=== PATIENT | male | born 1985 | race Caucasian/White ===

== ENCOUNTER → 2018-02-26 16:52 | Outpatient (CLI) | payer BC, SELFPAY ==
[2018-02-26 17:21] LABS: Basophils # 0.1 K/mm3 (0-0.2); Basophils % 0.9 % (0.1-2.0); Eosinophils # 0.1 K/mm3 (0.0-0.4); Eosinophils % 0.8 % (0.1-12.0); Hematocrit 45.9 % (42.0-52.0); Hemoglobin 15.1 g/dL (14.1-18.0); Lymphocytes # 3.6 K/mm3 (0.7-4.5); Lymphocytes % 42.5 K/mm3 (10-50); Mean Corpuscular HGB Conc 32.9 g/dL (31.8-35.4); Mean Corpuscular Volume 94.1 fl (80-94); Mean Platelet Volume 6.7 fl (7.4-10.4); Monocytes # 0.5 K/mm3 (0.1-1.0); Monocytes % 6.2 % (1.7-9.3); Neutrophils # 4.3 K/mm3 (1.8-7.8); Neutrophils % 49.6 % (37.0-80.0); Platelet Count 317 K/mm3 (142-424); Red Blood Count 4.87 M/mm3 (4.60-6.20); Red Cell Distribution Width 13.4 % (11.5-17.5); White Blood Count 8.6 K/mm3 (4.8-10.8)
[2018-02-26 17:29] LABS: Alanine Aminotransferase 33 U/L (12-78); Albumin Level 3.6 gm/dL (3.4-5.0); Albumin/Globulin Ratio 0.9 (1.1-1.8); Alkaline Phosphatase 81 U/L (46-116); Anion Gap 10.7 mEq/L (5-15); Aspartate Amino Transferase 17 U/L (15-37); Bilirubin,Total 0.2 mg/dL (0.2-1.0); Blood Urea Nitrogen 13 mg/dL (7-18); Carbon Dioxide 29 mmol/L (21.0-32.0); Chloride 103 mmol/L (98-107); Estimated Glomerular Filt Rate 111 ml/min (>60); GFR (African American) 135 ML/MIN (>60); Globulin 4.1 gm/dl (1.3-3.2); Glucose 95 mg/dL (74-106); Phosphorous 3.8 mg/dL (2.4-4.9); Potassium 3.7 mmoL/L (3.5-5.1); Sodium 139 mmol/L (136-145); Thyroid Stimulating Hormone 2.05 uIU/ml (0.358-3.740); Total Protein,Serum 7.7 gm/dL (6.4-8.2)
[2018-02-28 16:33] LABS: Vitamin B12 421 pg/mL (232-1245); Vitamin D 25 Hydroxy 26.5 ng/mL (30.0-100.0)
[2018-03-02 06:38] LABS: Testosterone, Total, LC/MS 124.1 ng/dL (264.0-916.0)
== END ==
PROVIDERS: Visit Provider Family Medicine
DX: R53.83 Other fatigue (principal)
CPT/HCPCS: 36415; 80053; 82607; 82652; 83735; 84100; 84403; 84443; 85025

== ENCOUNTER → 2018-07-12 09:57 | Outpatient (CLI) | payer BC, SELFPAY ==
--- NOTE | 2018-07-12 09:59 | MR_ITS ---
MR lumbar spine wo con, MR 3-d myelogram/MRCP HISTORY: Bilateral low back pain worse on the right LBP that radiates bilaterally but rt leg is worse. X1wk. No trauma ITS.REASON: LUMBAGO WITH SCIATICA ORDERING PHYSICIAN: Juanpablo Selby MD PATIENT AGE: 33 years Comparison: X-RAY 07/05/18 TECHNIQUE: Standard multiplanar multiecho sequences are performed without contrast. 3-D MIP and myelographic images are also rendered and reviewed FINDINGS: Normal alignment. The spinal cord ends at T12-L1. Minimal dextrocurvature of the lumbar spine. L1-L2 and L2-L3 have an unremarkable appearance. L3-L4: Minimal bulging disc along with facet and ligamentum hypertrophy with mild left lateral recess narrowing. L4-5: Bulging disc with small central disc protrusion slightly eccentric toward the left along with facet and ligamentum flavum hypertrophy. There is narrowing of the canal that level at 10 mm. Facet and ligamentum flavum hypertrophy also present. There is resultant canal stenosis at 10 mm along with bilateral lateral recess narrowing slightly greater on the left. The disc does abut the L5 nerve root on both sides slightly more prominent on the left. L5-S1: Bulging disc with small central disc protrusion slightly eccentric toward the left abutting the left S1 nerve root with left lateral recess narrowing. There is an area of abnormal signal intensity involving the medial aspect of the right ilium superiorly along the medial aspect of the iliac crest. This shows slight hyperintensity on T1 and is hyperintense on T2. Etiology is indeterminate. Recent plain films of the lumbar spine did not show any lytic lesion in this area although there is some slight decreased attenuation in the iliac crest superiorly nonspecific. IMPRESSION: 1. Bulging disc at L4-5 with small central disc protrusion slightly eccentric toward the left along with facet and ligamentum flavum hypertrophy. There is narrowing of the canal that level at 10 mm. Facet and ligamentum flavum hypertrophy also present. There is resultant canal stenosis at 10 mm along with bilateral lateral recess narrowing slightly greater on the left. The disc does abut the L5 nerve root on both sides slightly more prominent on the left. 2. Bulging disc at L5-S1 with small central disc protrusion slightly eccentric toward the left abutting the left S1 nerve root with left lateral recess narrowing. 3. Abnormal signal intensity in the right iliac crest. The slight increased T1 and increased T2 signal suggest a lipomatous lesion possibly related to asymmetric fatty marrow replacement. If there is focal pain in this region then, would recommend a bone scan to assess the activity of this area for further evaluation. Follow-up is recommended
== END ==
PROVIDERS: PCP Family Medicine; Visit Provider Family Medicine
DX: M54.41 Lumbago with sciatica, right side (principal); M54.42 Lumbago with sciatica, left side
CPT/HCPCS: 72148; 76376

== ENCOUNTER 2018-07-26 16:34 | Outpatient (RCR) | payer BC, SELFPAY ==
--- NOTE | 2018-07-26 17:46 | HMH.PTOPEV ---
PT Outpatient Evaluation Rehab PT Outpatient Evaluation Start: 07/26/18 17:32 Freq: Status: Active Protocol: Document 07/26/18 17:32 SANJUANA (Rec: 07/26/18 17:45 CANDIEPILAR [id number]) Electronically Signed By Samuel Dewey, PT 07/26/18 17:32 Outpatient Therapy Subjective History Subjective History Patient is a 33 year old female presenting to outpatient PT with reports of low back pain with radiating pain to anterior thigh and groin area starting 07/05/18. 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 He then went for consult at [facility]. Most recent diagnostics indicate L 4/5 L 5/S1 mild disc bulges. Pt reports hx of non-hodgkins lymphoma. Chief Complaint Pain Stiff Symptom Type Sharp Stabbing Symptoms Relieved By Rest/Positioning Ice OTC Meds Symptoms Aggravated By Sitting Prior Functional Limitations None Current Functional Limitations Sleeping Sitting Squatting Recreation Activity Walking Bending/Stooping Symptom Description Intermittent Level of pain today (0-10) 0 Pain scale - at its best (0-10) 0 Pain scale - at its worst (0-10) 4 Lumbopelvic Eval Posture Lumbar Spine Posture Standing Position Decreased Lordosis Assistive device Assistive Devices None / NA Accessory Movement L4 bilateral L5 bilateral Range of Motion Lumbar Spine Active Flexion Range of 70 Motion (degrees) Lumbar Spine Active Extension Range of 18 Motion (degrees) Left Lumbar Spine Lateral Flexion Active 28 Range of Motion (degrees) Right Lumbar Spine Lateral Flexion 25 Active Range of Motion (degrees) Lumbar Spine ROM Limitations Soft Tissue Tightness Bony Restriction Manual Muscle Test Bilateral Knee Extension Strength Grade 5 Normal Knee Flexion Strength Grade 5 Normal Hip Flexion Strength Grade 5 Normal Hip Abduction Strength Grade 5 Normal Hip Adduction Strength Grade 5
== END 2018-07-27 16:35 | disposition home or self-care (01) ==
LOC: PT 16:34
PROVIDERS: PCP Family Medicine; Visit Provider Family Medicine
DX: M54.5 Low back pain (principal); M51.26 Other intervertebral disc displacement, lumbar region
CPT/HCPCS: 97163

== ENCOUNTER → 2018-08-27 10:43 | Outpatient (POV) | payer BC, SELFPAY ==
[2018-08-27 11:03] VITALS: BP 126/71; PULSE 94; RESP 18; O2SAT 98
--- NOTE | 2018-08-27 11:25 | HMH.PMCON ---
Assessment and Plan (1) Low back pain with bilateral sciatica Current visit: No Status: Chronic Qualifiers: Chronicity: chronic Back pain laterality: midline Qualified Code(s): M54.41 - Lumbago with sciatica, right side; M54.42 - Lumbago with sciatica, left side; G89.29 - Other chronic pain Category: Medical Code(s): M54.42 - Lumbago with sciatica, left side; M54.41 - Lumbago with sciatica, right side (2) Lumbar disc disease Current visit: No Status: Chronic Category: Medical Code(s): M51.9 - Unspecified thoracic, thoracolumbar and lumbosacral intervertebral disc disorder - Assessment and plan all Dx Assessment and Plan for all problems:: Patient I discussed lumbar epidural steroid injections. Patient would like to review information on this. Patient is going to call us if he is interested in pursuing this if we did this we would schedule a L4-L5 lumbar epidural steroid injection. This note was dictated using voice recognition software and may contain errors or omissions HPI - Data of Consult Consult date: 08/27/18 Requesting Physician: Maria M Dominguez APRN Primary Care Provider: Juanpablo Selby MD Family Provider: Referral Provider, - Consult Narrative Reason for consult: Back pain History of present illness: Mr. Lua is a 33 year old male presents today for an in regards to his low back pain. Patient currently rates his back pain a 4 out of 10. He states it comes and goes. Patient has bilateral stabbing pain intermittently down his legs. Patient states all activity increases pain while rest decreases pain. Patient is tried and failed anti-inflammatories. Patient has tried physical therapy with minimal relief. Patient does have an MRI showing bulging disks along with disks abutting the nerve roots. CC: Maria M Dominguez APRN [facility] History I have reviewed the patient's past medical history: Yes Medical History: Reports:: Cancer (Non hodgkins lymphona at 11yo), Depression, Gastroesophageal Reflux Disease(GERD), Hypertension Denies:: Diabetes Mellitus Type 1, Diabetes Mellitus Type 2, MRSA Laterality Cases: Bilateral: Myringotomy (Ear Tubes), Tonsillectomy Other Surgeries: Yes: Other (lymphnodes removal, multiple ports/caths as child for CA) Amputation: No Fractures: No - *Social History Smoking Status: Never smoker Alcohol Intake: never Occupational Status: other - Psychiatric History Expresses thoughts of harming self/others: None Suicide Plan Description: No Plan Pschychiatric History:: Reports:: Depression *Family Hx:: Unable to obtain Review of Systems - Review of Systems ROS General: no recent weight change, no fever, no sleep disturbances Respiratory: no cough, no shortness of air, no recurring pulmonary infections Cardiovascular/Peripheral Vascular: No chest pain, No palpitations, no edema, no shortness of breath. Gastrointestinal: no incontinence, normal bowel movements reported Genitourinary: no incontinence Musculoskeletal: Back pain, leg pain Psychiatric: normal mood/ affect Neurological: [denies weakness in extremities], [denies balance issues] Meds Home Medications Medication Instructions Recorded Confirmed Type omega-3 fatty acids 1,000 mg 1,000 mg PO DAILY cap 03/21/18 08/08/18 History capsule omeprazole 40 mg capsule,delayed 40 mg PO DAILY cap 03/21/18 08/08/18 History release cholecalciferol (vitamin D3) 4,000 4,000 unit PO DAILY cap 03/23/18 08/08/18 History unit capsule Aspirin [Low Dose Aspirin EC] 81 mg PO DAILY 07/05/18 08/08/18 History Atorvastatin Calcium [Lipitor 20mg 20 mg PO DAILY 07/05/18 08/08/18 History Tablet] Carvedilol [Carvedilol 6.25mg Tab] 6.25 mg PO BID 07/05/18 08/08/18 History Lisinopril/Hydrochlorothiazide 1 tab PO DAILY 07/05/18 08/08/18 History [Lisinopril-Hctz 20-12.5 mg Tab] Sertraline HCl [Zoloft 100mg 100 mg PO DAILY 08/08/18 08/08/18 History tablet] Allergies
--- NOTE | 2018-08-27 11:29 | P.CONS_ITS ---
Assessment and Plan (1) Low back pain with bilateral sciatica Current visit: No Status: Chronic Qualifiers: Chronicity: chronic Back pain laterality: midline Qualified Code(s): M54.41 - Lumbago with sciatica, right side; M54.42 - Lumbago with sciatica, left side; G89.29 - Other chronic pain Category: Medical Code(s): M54.42 - Lumbago with sciatica, left side; M54.41 - Lumbago with sciatica, right side (2) Lumbar disc disease Current visit: No Status: Chronic Category: Medical Code(s): M51.9 - Unspecified thoracic, thoracolumbar and lumbosacral intervertebral disc disorder - Assessment and plan all Dx Assessment and Plan for all problems:: Patient I discussed lumbar epidural steroid injections. Patient would like to review information on this. Patient is going to call us if he is interested in pursuing this if we did this we would schedule a L4-L5 lumbar epidural steroid injection. This note was dictated using voice recognition software and may contain errors or omissions HPI - Data of Consult Consult date: 08/27/18 Requesting Physician: Maria M Dominguez APRN Primary Care Provider: Juanpablo Selby MD Family Provider: Referral Provider, - Consult Narrative Reason for consult: Back pain History of present illness: Mr. Lua is a 33 year old male presents today for an in regards to his low back pain. Patient currently rates his back pain a 4 out of 10. He states it comes and goes. Patient has bilateral stabbing pain intermittently down his legs. Patient states all activity increases pain while rest decreases pain. Patient is tried and failed anti-inflammatories. Patient has tried physical therapy with minimal relief. Patient does have an MRI showing bulging disks along with disks abutting the nerve roots. CC: Maria M Dominguez APRN [facility] History I have reviewed the patient's past medical history: Yes Medical History: Reports:: Cancer (Non hodgkins lymphona at 11yo), Depression, Gastroesophageal Reflux Disease(GERD), Hypertension Denies:: Diabetes Mellitus Type 1, Diabetes Mellitus Type 2, MRSA Laterality Cases: Bilateral: Myringotomy (Ear Tubes), Tonsillectomy Other Surgeries: Yes: Other (lymphnodes removal, multiple ports/caths as child for CA) Amputation: No Fractures: No - *Social History Smoking Status: Never smoker Alcohol Intake: never Occupational Status: other - Psychiatric History Expresses thoughts of harming self/others: None Suicide Plan Description: No Plan Pschychiatric History:: Reports:: Depression *Family Hx:: Unable to obtain Review of Systems - Review of Systems ROS General: no recent weight change, no fever, no sleep disturbances Respiratory: no cough, no shortness of air, no recurring pulmonary infections Cardiovascular/Peripheral Vascular: No chest pain, No palpitations, no edema, no shortness of breath. Gastrointestinal: no incontinence, normal bowel movements reported Genitourinary: no incontinence Musculoskeletal: Back pain, leg pain Psychiatric: normal mood/ affect Neurological: [denies weakness in extremities], [denies balance issues] Meds Home Medications Medication Instructions Recorded Confirmed Type omega-3 fatty acids 1,000 mg 1,000 mg PO DAILY cap 03/21/18 08/08/18 History capsule omeprazole 40 mg capsule,delayed 40 mg PO DAILY cap 03/21/18 08/08/18 History release cholecalciferol (vitamin D3) 4,000 4,000 uni
== END ==
PROVIDERS: PCP Family Medicine; Visit Provider Clinical Nurse Specialist Family Health
DX: M54.41 Lumbago with sciatica, right side (principal); M54.42 Lumbago with sciatica, left side; G89.29 Other chronic pain; M51.9 Unspecified thoracic, thoracolumbar and lumbosacral intervertebral disc disorder
CPT/HCPCS: 99202

== ENCOUNTER → 2018-09-15 07:30 | Outpatient (CLI) | payer BC, SELFPAY ==
[2018-09-15 10:19] LABS: Alanine Aminotransferase 31 U/L (12-78); Albumin Level 3.3 gm/dL (3.4-5.0); Alkaline Phosphatase 82 U/L (46-116); Aspartate Amino Transferase 33 U/L (15-37); Bilirubin,Direct 0.1 mg/dL (0.0-0.2); Bilirubin,Indirect 0.2 mg/dL (0.0-0.9); Bilirubin,Total 0.3 mg/dL (0.2-1.0); Chol/HDL Ratio 4.5 (1-3.5); Cholesterol 95 mg/dL (140-200); HDL Cholesterol 21 mg/dL (27-67); LDL Cholesterol 39 mg/dL (0-130); Total Protein,Serum 6.3 gm/dL (6.4-8.2); Triglycerides 175 mg/dL (30-200); VLDL Cholesterol 35 mg/dL (0-40)
== END ==
PROVIDERS: PCP Family Medicine; Visit Provider Internal Medicine Cardiovascular Disease
DX: E78.5 Hyperlipidemia, unspecified (principal); I11.9 Hypertensive heart disease without heart failure; I42.9 Cardiomyopathy, unspecified; I77.1 Stricture of artery
CPT/HCPCS: 36415; 80061; 80076